=== PATIENT | female | born 1985 | race American Indian/Alaskan Native ===

== ENCOUNTER 2017-05-31 10:57 | Emergency (ER) | payer SELFPAY ==
[2017-05-31] MEDS ORDERED: NACL 0.9% 1000 ML 1,000 ML IV ONE (16:58)
[2017-05-31] MEDS ORDERED: PEPCID IV ONE (16:58)
[2017-05-31] MEDS ORDERED: BENADRYL IV ONE (16:58)
--- NOTE | 2017-05-31 17:06 | Emergency Department Report ---
ED Allergic Reaction HPI - General Chief complaint: Allergic Reaction Stated complaint: ALLERGIC REACTION/SWELLING EYES Time Seen by Provider: 05/31/17 16:44 Source: patient Mode of arrival: Ambulatory Limitations: No Limitations - History of Present Illness Initial Comments: This is a 31-year-old female nontoxic, well nourished in appearance, no acute signs of distress presents to the ED with c/o of periorbital swelling with redness and itching and hives x1 day. Patient stated she came into town to her brothers house and his dog was around her and she developed itching and rash. Later that day patient developed bilateral itching of eyes and swelling or periorbital region. Patient stated the rash has subsided. Patient denies any shortness of breathe, difficultly breathing, lip or tongue swelling, fever, chills, headache, nausea, vomiting, chest pain, shortness of breathe, numbness, tingling, or abdominal pain. Patient states allergies to PCN. Denies PMH. MD Complaint: allergic reaction, hives, other (periorbital swelling) -: days(s) (1) Exposure: other (dog) Symptoms: rash, itching, other (periorbital swelling). denies: facial swelling , lip swelling, difficulty swallowing, difficulty breathing, orolingual swelling , hoarseness, syncopy, dizziness, nausea, vomiting, abdominal pain Severity: mild Treatment Prior to Arrival: benadryl Previous Allergy History: none - Related Data Previous Rx's Medication Instructions Recorded Last Taken Type diphenhydrAMINE [Benadryl CAP] 25 mg PO Q8HR PRN #30 capsule 05/31/17 Unknown Rx predniSONE [Deltasone] 40 mg PO QDAY #5 tab 05/31/17 Unknown Rx Allergies Allergy/AdvReac Type Severity Reaction Status Date / Time Penicillins Allergy Hives Verified 05/31/17 11:17 ED Review of Systems ROS: Stated complaint: ALLERGIC REACTION/SWELLING EYES Other details as noted in HPI Constitutional: denies: chills, fever Eyes: denies: eye pain, eye discharge, vision change ENT: denies: ear pain, throat pain Respiratory: denies: cough, shortness of breath, wheezing Cardiovascular: denies: chest pain, palpitations Endocrine: no symptoms reported Gastrointestinal: denies: abdominal pain, nausea, diarrhea Genitourinary: denies: urgency, dysuria, discharge Musculoskeletal: denies: back pain, joint swelling, arthralgia Skin: rash. denies: lesions Neurological: denies: headache, weakness, paresthesias Psychiatric: denies: anxiety, depression Hematological/Lymphatic: denies: easy bleeding, easy bruising ED Past Medical Hx - Past Medical History Previous Medical History?: No - Surgical History Past Surgical History?: No - Social History Smoking Status: Never Smoker Substance Use Type: None - Medications Home Medications: Home Medications Medication Instructions Recorded Confirmed Last Taken Type diphenhydrAMINE [Benadryl CAP] 25 mg PO Q8HR PRN #30 capsule 05/31/17 Unknown Rx predniSONE [Deltasone] 40 mg PO QDAY #5 tab 05/31/17 Unknown Rx ED Physical Exam - General Limitations: No Limitations General appearance: alert, in no apparent distress - Head Head exam: Present: atraumatic, normocephalic, normal inspection - Eye Eye exam: Present: normal appearance, PERRL, EOMI, periorbital swelling, other ( Not warm to touch. No cellulities. No induration or flutance noted. ). Absent: scleral icterus, conjunctival injection, nystagmus, periorbital tenderness Pupils: Present: normal accommodation - ENT ENT exam: Present: normal exam, normal orophraynx, mucous membranes moist, TM's normal bilaterally, normal external ear exam - Neck Neck exam: Present: normal inspection, full ROM. Absent: tenderness, meningismus, lymphadenopathy, thyromegaly - Respiratory Respiratory exam: Present: normal lung sounds bilaterally. Absent: respiratory distress, wheezes, rales, rhonchi, stridor, chest wall tenderness, accessory muscle use, decreased breath sounds, prolonged expiratory - Cardiovascular Cardiovascular Exam: Present: regular rate, normal rhythm, normal heart sounds. Absent: irregular rhythm, systolic murmur, diastolic murmur, rubs, gallop - GI/Abdominal GI/Abdominal exam: Present: soft, normal bowel sounds. Absent: distended, tenderness, guarding, rebound, rigid, diminished bowel sounds - Rectal Rectal exam: Present: deferred - Extremities Exam Extremities exam: Present: normal inspection, full ROM, normal capillary refill. Absent: tenderness, pedal edema, joint swelling, calf tenderness - Back Exam Back exam: Present: normal inspection, full ROM. Absent: tenderness, CVA tenderness (R), CVA tenderness (L), muscle spasm, paraspinal tenderness, vertebral tenderness, rash noted - Neurological Exam Neurological exam: Present: alert, oriented X3, CN II-XII intact, normal gait, reflexes normal - Psychiatric Psychiatric exam: Present: normal affect, normal mood - Skin Skin exam: Present: warm, dry, intact, normal color, urticaria (slight in the hands with back. No other urticaria present.). Absent: rash - Other Other exam information: No angioedema noted. ED Course Vital Signs 05/31/17 11:10 Temperature 98.7 F Pulse Rate 93 H Respiratory 16 Rate Blood Pressure 132/90 O2 Sat by Pulse 98 Oximetry - Reevaluation(s) Reevaluation #1: 05/31/17 17:09 Patient is speaking in full sentences with no signs of distress noted. ED Medical Decision Making - Medical Decision Making This is a 31-year-old female that presents with allergic reaction. Patient is stable and was examined by me. There are no signs of angioedema besides periorbital swelling. There are some urticaria presents to the both hands and back. Patient received Solu-medrol 125, Pepcid, Benadryl, and NOrmal saline in the ED. Patient stated she feels much better and itching has subsided. Patients brother (Franca Chang) stated he will drive the patient home. Patient is d/ c with prednisone and benadryl. Patient was instructed to Follow-up with a primary care doctor in 3-5 days or if symptoms worsen and continue return to emergency room as soon as possible. At time time of discharge, the patient does not seem toxic or ill in appearance. No acute signs of distress noted. Patient agrees to discharge treatment plan of care. No further questions noted by the patient. Patient was instructed not to operate any machinery after d/c due to drowsiness and patient stated her brother will drive the patient home after d.c. Critical care attestation.: If time is entered above; I have spent that time in minutes in the direct care of this critically ill patient, excluding procedure time. ED Disposition Clinical Impression: Allergic reaction Qualifiers: Encounter type: initial encounter Qualified Code(s): T78.40XA - Allergy, unspecified, initial encounter Disposition: - TO HOME OR SELFCARE Is pt being admited?: No Does the pt Need Aspirin: No Condition: Stable Instructions: Prednisone (By mouth), Diphenhydramine (By mouth) Additional Instructions: Follow-up with a primary care doctor in 3-5 days or if symptoms worsen and continue return to emergency room as soon as possible. Do not operate any machinery after discharge due to drowsiness of Benadryl that you received in the ED. Prescriptions: diphenhydrAMINE [Benadryl CAP] 25 mg PO Q8HR PRN #30 capsule PRN Reason: Itching predniSONE [Deltasone] 40 mg PO QDAY #5 tab Referrals: PRIMARY CAREMD [Primary Care Provider] - 3-5 Days YOUSUF PURI MD [Staff Physician] - 3-5 Days [facility] [Outside] - 3-5 Days [facility] [Outside] - 3-5 Days Forms: Work/School Release Form(ED)
[2017-05-31 20:37] VITALS: BP 118/71
== END 2017-05-31 20:43 | disposition home or self-care (01) ==
LOC: ED 10:57
DX: T78.40XA Allergy, unspecified, initial encounter (principal); Y92.89 Other specified places as the place of occurrence of the external cause
CPT/HCPCS: 96361; 96374; 96375; 99282; J1200; J2930; J7030